=== PATIENT | female | born 1985 | race Caucasian/White ===

== ENCOUNTER → 2017-01-24 | Outpatient (CLI) | payer OTHER ==
[~2017-01-24] MED LIST: AEROCHAMBER1 DEV IH; ALBUTEROL2 PUFFS/17 IN; AMOXICILLIN 50500 MG PO; AMOXIL500 MG PO; APAP/OXYCODONE1 TA5 PO; AZITHROMYCIN250 MG PO; BENADRYL25 M1 PO; BENTYL10 MG PO; BENZONATATE100 MG PO; CIPRO 500MG TA500 MG PO; CLINDAMYCIN HC300 MG PO; DIFLUCAN150 MG PO; FIORICET 325 MG1 TAB PO; FLEXERIL10 MG PO; FLEXERIL5 MG PO; HYDROCODONE1 TABLET PO; LORTAB 5/500 501 TAB PO; MACROBID 100MG100 M1 PO; MEDROL 4MG. DOSE4 MG PO; MONODOX100 MG PO; MOTRIN 400MG.400 MG PO; MOTRIN 600MG.600 MG PO; MULTIVITAMIN1 TA1 PO; NAPROSYN 500MG500 MG PO; NICOTINE T21 MG/24 H TD; NUVARING1 ICR VG; PERCOCET 5/3251 EACH PO; PHENERGAN 25MG.25 M1 PO; PREDNISONE 10MG10 MG PO; PREDNISONE 20MG20 MG PO; PRENATAL PLUS1 TA1 PO; PROAIR HFA0.09 MG/AC IH; SEPTRA DS 800 M1 TAB PO; TESSALON PERLE100 M1 PO; TESSALON PERLE100 MG PO; TESSALON PERLE200 MG PO; VENTOLIN H0.09 MG/AC IH; VENTOLIN H0.09 MG/Ac IH; VIBRAMYCIN 100100 MG PO; VICODIN 5/500 T1 TAB PO; VICOPROFEN 7.51 TAB PO; VOLTAREN75 MG PO; ZANAFLEX4 MG PO; ZANTAC 150150 MG PO; ZITHROMAX Z-PA250 M1 PO; ZOFRAN ODT4 MG PO; ZOLOFT 50MG TAB50 MG OR; ZOLOFT25 MG PO; ZOLPIDEM5 MG PO; Zofran4 MG PO
== END ==
LOC: LAB 10:41
DX: Z32.00 Encounter for pregnancy test, result unknown (principal)